=== PATIENT | female | born 1985 | race American Indian/Alaskan Native ===

== ENCOUNTER 2018-12-31 07:54 | Emergency (ER) | payer BC ==
--- NOTE | 2018-12-31 08:13 | C.PDOC ---
History Of Present Illness 33 year old female presents to the ED for evaluation of left ankle pain s/p twist today in the morning. Patient has a history of L. unstable knee, it gave up this morning, making her fall. Now denies knee pain. The patient reports she is unable to bear weight. Denies fever, chills, numbness, tingling, and any other associated symptoms. Time Seen by Provider: 12/31/18 07:59 Chief Complaint (Nursing): Lower Extremity Problem/Injury History Per: Patient History/Exam Limitations: no limitations Onset/Duration Of Symptoms: Hrs Current Symptoms Are (Timing): Still Present Recent travel outside of the [place]: No - Knee Description Of Injury: Twisted Past Medical History Reviewed: Historical Data, Nursing Documentation, Vital Signs Family History: States: Unknown Family Hx - Social History Hx Alcohol Use: No Hx Substance Use: No Review Of Systems Except As Marked, All Systems Reviewed And Found Negative. Constitutional: Negative for: Fever, Chills Musculoskeletal: Positive for: Other (left ankle pain. ) Neurological: Negative for: Weakness, Numbness, Incoordination Physical Exam - Physical Exam Appears: Well, Non-toxic, No Acute Distress Skin: Warm, Dry Head: Atraumatic, Normacephalic Eye(s): bilateral: Normal Inspection Oral Mucosa: Moist Tongue: Normal Appearing Lips: Normal Appearing Neck: Normal ROM Chest: Symmetrical Cardiovascular: Rhythm Regular, No Murmur Respiratory: Normal Breath Sounds Gastrointestinal/Abdominal: Normal Exam, Soft, No Tenderness Back: Normal Inspection, No Vertebral Tenderness Extremity: Tenderness ((+) diffuse tenderness.), No Deformity, Swelling ((+) bilateral swelling around the malleolus area.), Other (L. knee exam : no tenderness, no dislocation) Pulses: Left Dorsalis Pedis: Normal, Right Dorsalis Pedis: Normal Neurological/Psych: Oriented x3, Normal Speech, Normal Cognition, Normal Motor, Normal Sensation, Normal Reflexes ED Course And Treatment O2 Sat by Pulse Oximetry: 99 (RA) Pulse Ox Interpretation: Normal - Other Rad LT Ankle XRAY X-Ray: Viewed By Me, Read By Radiologist Interpretation: FINDINGS: BONES: Transverse fracture through the medial malleolus is appreciate with an oblique fracture through the distal left fibula just above the level of the lateral malleolus. JOINTS: The medial is ankle mortise is slightly widened but only up to 3.8 mm with the lateral mortise slightly narrowed. SOFT TISSUES: Circumferential soft tissue edema is appreciated but is most apparent medially at the ankle. OTHER FINDINGS: None. IMPRESSION: Bimalleolar fracture left ankle with mild widening of the medial mortise and related soft tissue edema is noted. No dislocation appreciated. Medical Decision Making Medical Decision Making: Initial plan: -Motrin -LT Ankle x-ray Progress/Update: 8:54am spoke with podiatry resident polymer materials consultant who agreed to see the patient at bedside. Progress/update: Patient stable for discharge home. Prescribed Motrin. Advised to return to the ED if symptoms worsen. Disposition Discussed With : Aleisha Comment: Podiatry resident Doctor Will See Patient In The: ED Counseled Patient/Family Regarding: Studies Performed, Diagnosis, Rx Given - Disposition Referrals: Patsy Baird DPM [Staff Provider] - (Wednesday New addresd: [address] [place] [address], ) Disposition: HOME/ ROUTINE Disposition Time: 10:02 Condition: STABLE Prescriptions: Ibuprofen [Motrin] 600 mg PO TID #15 tab Instructions: Ankle Fracture, How to Use Crutches Forms: General Discharge Instructions, [facility] (Japanese), Work Excuse - POA Present On Arrival: None - Clinical Impression Clinical Impression: Ankle fracture, bimalleolar, closed - Scribe Statement The provider has reviewed the documentation as recorded by the Scribe (Sharri Asher) Provider Attestation: All medical record entries made by the Scribe were at my direction and personally dictated by me. I have reviewed the chart and agree that the record accurately reflects my personal performance of the history, physical exam, medical decision making, and the department course for this patient. I have also personally directed, reviewed, and agree with the discharge instructions and disposition.
--- NOTE | 2018-12-31 09:02 | RAD ---
Date of service: 12/31/2018 PROCEDURE: Left Ankle Radiographs. HISTORY: trauma COMPARISON: None available. FINDINGS: BONES: Transverse fracture through the medial malleolus is appreciate with an oblique fracture through the distal left fibula just above the level of the lateral malleolus. JOINTS: The medial is ankle mortise is slightly widened but only up to 3.8 mm with the lateral mortise slightly narrowed. SOFT TISSUES: Circumferential soft tissue edema is appreciated but is most apparent medially at the ankle. OTHER FINDINGS: None. IMPRESSION: Bimalleolar fracture left ankle with mild widening of the medial mortise and related soft tissue edema is noted. No dislocation appreciated.
--- NOTE | 2018-12-31 09:39 | CP.PCM.CON ---
History of Present Illness - History of Present Illness History of Present Illness: Podiatry Consult Note: Dr. Baird 33F, with no PMHx, seen and evaluated in the ED for L ankle pain. Patient states that she was working out doing lunges this morning when she fell and twisted her ankle. She states that she was immediately unable to weightbear and presented to the ED. She admits to pain to the L ankle, however pain is well controlled with pain medication. Denies N/V/F/SOB/CP. PMHx: denies PSHx: R elbow ALL: denies Review of Systems - Constitutional Constitutional: As Per HPI Past Patient History - Infectious Disease Hx of Infectious Diseases: None - Past Social History Smoking Status: Never Smoked - PSYCHIATRIC Hx Substance Use: No - SURGICAL HISTORY Other/Comment: elbow surgery - ANESTHESIA Hx Anesthesia: Yes Hx Anesthesia Reactions: No Meds Home Medications: Home Medication List Medication Instructions Recorded Confirmed Type Ibuprofen [Motrin] 600 mg PO TID #15 tab 12/31/18 Rx Allergies/Adverse Reactions: Allergies Allergy/AdvReac Type Severity Reaction Status Date / Time almond Allergy Verified 12/31/18 09:22 strawberry Allergy Verified 12/31/18 09:22 avacodo Allergy Uncoded 12/31/18 09:22 Physical Exam - Constitutional Appears: Non-toxic, No Acute Distress - Head Exam Head Exam: ATRAUMATIC, NORMOCEPHALIC - Extremities Exam Additional comments: Vascular: DP/PT palpable 2/4, CFT < 3 seconds, TG warm to warm, + 1 edema appreciated to hector-malleoloar region Ortho: Pain with palpation of medial and lateral malleolus, pain with palpation of active and passive ROM, no pain with calf compression, achilles tendon intact, MMT 4/5 secondary to guarding Neuro: Gross and protective sensation intact Derm: No open lesions, no erthema, no clinical signs of infection - Neurological Exam Neurological exam: Alert, Oriented x3 - Psychiatric Exam Psychiatric exam: Normal Affect, Normal Mood Results - Vital Signs Recent Vital Signs: Last Vital Signs Temp 99.2 F 12/31/18 08:00 Pulse 92 H 12/31/18 08:00 Resp 22 12/31/18 08:00 BP 116/78 12/31/18 08:00 Pulse Ox 100 12/31/18 08:00 Assessment & Plan - Assessment and Plan (Free Text) Assessment: 33F, with no PMHx, seen and evaluated in the ED for L ankle bimalleoloar fracture Plan: Patient seen and evaluated with all questions and concerns addressed L ankle x-rays reviewed; bimalleolar fracture present Patient placed in posterior splint Patient to remain NWB to the L lower extremity Educated patient on RICE protocol F/U on Wednesday in office with Dr. Baird Thank you for the consult - Date & Time Date: 12/31/18 Time: 09:36
[2018-12-31 09:59] VITALS: BP 134/64; PULSE 75; RESP 20; TEMP 99.1; O2SAT 99
== END 2018-12-31 10:21 | disposition home or self-care (01) ==
LOC: C.ER 07:54
DX: S82.842A Displaced bimalleolar fracture of left lower leg, initial encounter for closed fracture (principal); W18.30XA Fall on same level, unspecified, initial encounter; Y93.B9 Activity, other involving muscle strengthening exercises

== ENCOUNTER 2019-01-06 06:45 | Day surgery (SDC) | payer BC ==
[~2019-01-06 06:45] MED LIST: Bupivacaine 0.25% 20 ML INJ IJ ONE; Lidocaine Hydrochloride 0 ML INJ ONE; ceFAZolin 1 gm in NS 1 GM/100 ML BAG IVPB ONE
[2019-01-06] MEDS ORDERED: Midazolam 2 MG/2 ML VIAL ONE (07:44)
[2019-01-06] MEDS ORDERED: Propofol 10 mg/ml Inj (20 ML) ONE (07:44)
[2019-01-06] MEDS ORDERED: ceFAZolin 1 gm in NS 1 GM/100 ML BAG IVPB ONE (08:40)
[2019-01-06] MEDS ORDERED: Morphine 4 MG/ML VIAL ONE (10:56)
[2019-01-06] MEDS ORDERED: Ropivacaine 0.5% PF (20 ml) inj INJ ONE (11:05)
[2019-01-06] MEDS ORDERED: Sodium Chloride 0.9% 20 ML IV ONE (11:05)
--- NOTE | 2019-01-06 11:05 | PCM.SURG1 ---
Surgeon's Initial Post Op Note - Surgeon's Notes Surgeon: JESSE SwanM & Dr. Nayeli Kenyon MD Grader Tender: Dr. Ulises Sotelo, PGY-3; Dr. Tian Clay, PGY-3; Dr. Prieto Lyn, PGY-2 Type of Anesthesia: General LMA Anesthesia Administered By: Dr. Kermit MD Pre-Operative Diagnosis: Left ankle Bimalleolar fracture, closed, displaced. Operative Findings: Left ankle Trimalleolar fracture, closed, displaced, comminuted. Post-Operative Diagnosis: See dictation. M: Synthes Distal Fibular C-hole plate; Synthes 3.5 x 12mm cortical screw (x3); Synthes 3.5 x 12mm locking screw (x2); Synthes 2.7 x 10mm locking screw (x2); Synthes 2.7 x 12mm locking screw (x3); Synthes 3.5 x 46mm cannulated partially threaded screw (x2). I: 10 mL's of 5 marciane plain Operation Performed: 1) Left distal fibular open reduction with internal fixation. 2) Left medial malleolus open reduction with internal fixation Specimen/Specimens Removed: none Estimated Blood Loss: EBL {In ML}: 5 Blood Products Given: N/A Drains Used: No Drains Post-Op Condition: Good Date of Surgery/Procedure: 01/06/19 Time of Surgery/Procedure: 11:09
[2019-01-06] MEDS: HYDROmorphone 0.5 mg/0.5 ml ISec IVP PRN ×4 (11:06→11:40)
[2019-01-06] MEDS ORDERED: Oxycodone/Acetaminophen 5/325 mg Tab PO PRN ×2 (11:11→12:25)
--- NOTE | 2019-01-06 11:53 | RAD ---
Date of service: 01/06/2019 PROCEDURE: Left Ankle Radiographs. HISTORY: s/p left ankle surgery COMPARISON: 12/31/2018 FINDINGS: BONES: Status post reduction and internal fixation of medial malleolar fracture with 2 metallic screws. Status post open reduction and internal fixation of distal fibular fracture with a metallic plate and multiple screws. No evidence for hardware complications. Bone alignment is normal. There is periarticular bone demineralization. JOINTS: Normal. No osteoarthritis. Ankle mortise maintained. Talar dome intact SOFT TISSUES: Normal. OTHER FINDINGS: Cast obscures fine bony details. IMPRESSION: Cast obscures fine bony details. Status post reduction and internal fixation of medial malleolar and distal fibular fractures. No evidence for hardware complications.
--- NOTE | 2019-01-06 14:25 | PCM.ANESB2 ---
Popliteal Nerve Block - Popliteal Nerve Block Date of Procedure: 01/06/19 Anesthesiologist: Daya Pre-Procedure Diagnosis: Left ankle internal derangement Post-Procedure Diagnosis: Left ankle internal derangement Procedure Performed: Popliteal Nerve Block Left - Procedure Popliteal Nerve Block: This procedure was explained to the patient that it is for post-operative pain management. Consent was obtained after a thorough discussion with the patient regarding the benefits and possible complications of local anesthetic block of the sciatic nerve at the popliteal level. The patient was brought to the operating room and standard monitors are applied. Time-out was held with the circulating nurse to confirm the correct surgery and the appropriate block. After applying oxygen by nasal cannula and administering IV Sedation, patient's operative leg was gently raised and supported and the groove in between the biceps femoris and vastus lateralis muscles was carefully palpated. The skin approximately 8cm above the popliteal crease was then marked. The ultrasound transducer was then applied to the posterior thigh approximately 8cm above the popliteal crease in the transverse plane and the sciatic nerve before its division was visualized lateral to the popliteal artery and in between the bicep femoris and semimembranosus/semitendinosus muscles. After identification, the lateral portion of the thigh was prepped with Betadine solution three times and Lidocaine 1% was injected subcutaneously for topical anesthesia. At this point, a # 21 gauge Stimuplex insulated 4 inch needle was inserted into pre-marked area and advanced in a perpendicular direction. The needle was inserted above the ultrasound transducer in-plane towards the sciatic nerve in a [id number] direction. Needle advancement was performed carefully under direct ultrasound visualization. After repeated negative aspiration, _20 cc of _0.5__ % _ropivicaine. Under ultrasound guidance the local anesthetics were observed surrounding sciatic nerve . The needle was removed intact and sterile dressing was applied. The patient tolerated the popliteal nerve block well with stable vital signs and was subsequently prepared for the surgery.
[2019-01-06 16:14] VITALS: RESP 16; O2SAT 99
[2019-01-06 17:30] VITALS: BP 105/61; PULSE 73; TEMP 97.8
--- NOTE | 2019-01-07 09:30 | OP ---
PROCEDURE DATE: 01/06/2019 PREOPERATIVE DIAGNOSES: 1. Left ankle displaced trimalleolar ankle fracture POSTOPERATIVE DIAGNOSIS: Left ankle trimalleolar ankle fracture. PROCEDURE PERFORMED: 1) Left ankle open reduction with internal fixation of trimalleolar fracture 2) Fluroscopy PRIMARY SURGEON: Patsy Baird DPM MARBLE COPER SURGEON: Nayeli Kenyon MD ASSISTING RESIDENTS: Aaron Sotelo, PGY-3; Chantal Clay DPM, PGY-3; Alana Lyn DPM, PGY-2. TYPE OF ANESTHESIA: General LMA with popliteal block ANESTHESIOLOGIST: Dr. Kermit MD INDICATIONS: The patient is a 33-year-old female with the above mentioned diagnosis. The require surgical intervention due to the unstable nature of the fracture pattern. The patient signed the surgical consent after careful explanation of risks, benefits, complications, and potential alternatives to the proposed procedures. No guarantees were either given nor implied. All the patient questions were answered to her satisfaction. PREPARATION: The patient's n.p.o. status was confirmed prior to bringing the patient to the operating room. The patient was brought to the operating room and placed on the operating room table in a supine position. A well-padded pneumatic tourniquet was applied at the left mid thigh level, which was set to 350 mmHg to be inflated once the procedure began. Once general anesthesia was confirmed to have been achieved, the patient's left foot and lower legs to the level of the knee were then prepped and draped in usual sterile manner. Foot, ankle, and lower leg were then exsanguinated. Tourniquet was inflated and the procedure began. DESCRIPTION OF PROCEDURE: Left ankle open reduction with internal fixation of trimalleolar ankle fracture Attention was then directed to the patient's left ankle where anatomical margins of the medial and lateral malleolus were then marked. At this time, under fluoroscopic evaluation, extend of displacement was assessed. At this time, attention was then directed to the lateral aspect of the patient's distal fibula where approximately a 9 cm linear longitudinal incision was made along the lateral border of the distal fibula. This incision was extended down to subcutaneous tissue layers with care being taken to identify, avoid, and retract all vital neurovascular structures. All bleeders were cauterized as need and encountered. At this time, a full thickness periosteal incision was made in length with the surgical skin incision. Periosteal structures were then reflected anteriorly and posteriorly thus allowing full visualization of distal fibular fracture. At this time, using manual reduction technique, the fibular fracture was placed in corrected anatomical alignment. At this time, a Synthes 6-hole distal contoured fibular plate was utilized in a bridging fashion to serve as permanent internal fixation. Under fluoroscopic evaluation, corrected anatomical position was confirmed to have been achieved and maintained. At this time, a 3 cm linear longitudinal incision was made overlying the medial malleolus down to the level of the subcutaneous tissue layer with care being taken to identify, avoid, and retract all vital neurovascular structures. All bleeders were cauterized and ligated as needed and encountered. Periosteal incision overlying the medial malleolus was performed and lined with the skin incision. At this time, using manual reduction, temporary fixation K-wire was driven across the medical malleolus, and a cannulated 3.5 mm partially threaded screws were utilized for permanent fixation. Correction at this time was assessed in the fluoroscopy and found to be excellent. Temporary fixation K-wires were removed. At this time, under fluoroscopic evaluation, ankle joint range of motion was assessed and it was noted that there was a small posterior avulsion fracture, with limited intra articular involvement and inherent stability. At this time, ankle syndesmosis was stressed under fluoroscopy and found to be intact. Surgical site was then flushed with copious amounts of sterile saline. Under fluoroscopic evaluation again, posterior malleolar fracture was assessed and found to be adequately reduced as fracture fragment was not a large intraarticular component. At this time, surgical sites were flushed with copious amounts of sterile saline. Periosteal structures were reapproximated using 2-0 Vicryl. Subcutaneous tissue layer was reapproximated using 3-0 and 4-0 Vicryl. Skin was reapproximated using 4-0 nylon in a simple suture type fashion. Surgical site was then dressed with dressing and the patient was placed in an AO type posterior splint which was well padded. Tourniquet was deflated. POSTOPERATIVE CONDITION: The patient was escorted to the recovery room with vital signs stable and neurovascular status intact to the left lower extremity which was confirmed via intraoperative Doppler, pt was placed in outpatient splint. Capillary refill time was noted to the level of all five digits. The patient has no complaints or complications. Aaron Sotelo DPM Patsy Baird DPM MTDAdy
== END 2019-01-06 17:40 | disposition home or self-care (01) ==
LOC: C.SDS 06:45
PROVIDERS: ATTEND Podiatrist Foot & Ankle Surgery
DX: S82.852A Displaced trimalleolar fracture of left lower leg, initial encounter for closed fracture (principal); M50.20 Other cervical disc displacement, unspecified cervical region; Z98.890 Other specified postprocedural states; X58.XXXA Exposure to other specified factors, initial encounter
CPT/HCPCS: 27822; 64450; 73600; 82948; J0690; J1100; J1170; J1885; J2250; J2270; J2405; J2704; J3010